=== PATIENT | male | born 1960 | race Caucasian/White ===

== ENCOUNTER 2022-07-09 20:19 | Emergency (ER) | payer MEDICARE ==
[~2022-07-09] VITALS: Ht 188 cm; Wt 83.6 kg
[2022-07-09 20:23] VITALS: BP 145/92
[2022-07-09] MEDS ORDERED: amox tr/potassium clavulanate 875/125mg TAB PO ONE (21:35)
[2022-07-09] MEDS ORDERED: AMOX-117 PO (21:41)
== END 2022-07-09 22:03 | disposition home or self-care (01) ==
LOC: ER 20:20
DX: S91.351A Open bite, right foot, initial encounter (principal); Z88.8 Allergy status to other drugs, medicaments and biological substances; W55.01XA Bitten by cat, initial encounter; Y93.89 Activity, other specified; Y92.89 Other specified places as the place of occurrence of the external cause; Y99.8 Other external cause status
CPT/HCPCS: 99283